=== PATIENT | male | born 1955 | race African-American/Black ===

== ENCOUNTER → 2018-02-08 | Outpatient (CLI) | payer OTHER ==
--- NOTE | 2018-02-08 13:25 | Diagnostic Imaging Report ---
EXAMINATION: MRI of the lumbar spine without contrast HISTORY: Low back pain radiating to the lower extremities for the last 2 weeks. COMPARISON: None. TECHNIQUE: Sagittal T1, T2, STIR; axial T2 and proton density. FINDINGS: It is assumed that there are 5 lumbar vertebrae. Curvature/Alignment: Normal lordosis. Minimal degenerative anterolisthesis at L3-4. Vertebrae: No evidence of recent fracture, infection, or neoplasm. Shallow Schmorl's nodes from L1 to L5, with decreased vertebral body height centrally by approximately 15% at L2, L3 and L4 without posterior retropulsion. Conus: Normal, terminating at T12-L1 Cauda equina: Unremarkable. Lower thoracic: Unremarkable. Paraspinal soft tissues: Partially visualized T2 hyperintense possible cyst in the right kidney. Degenerative changes: L1-L2: Minimal asymmetric disc bulge without stenoses L2-L3: Mild symmetric disc bulge without stenosis L3-L4: Mild symmetric disc bulge, moderate facet arthrosis, ligamentum flavum thickening. Moderately severe spinal canal and mild foraminal stenoses. Minimal right facet joint effusion, bone marrow edema and periarticular swelling, related to degenerative synovitis may be in the right. L4-L5: Minimal symmetric disc bulge and facet arthrosis. Minimal foraminal narrowing. L5-S1: Rudimentary disc without stenosis. IMPRESSION: 1. Minimal degenerative anterolisthesis at L3-L4 due to facet arthrosis. 2. Moderately severe degenerative spinal canal and mild neural foraminal stenosis at L3-L4. 3. Minimal degenerative foramina narrowing at L4-L5. Signed by: Dr. Jacqueline Friedman M.D. on 02/08/2018 1:21 PM
== END ==
LOC: MRI 07:57
PROVIDERS: ATTEND Family Medicine
DX: S33.5XXA Sprain of ligaments of lumbar spine, initial encounter (principal)
CPT/HCPCS: 72148